=== PATIENT | female | born 1995 | race Two or more races ===

== ENCOUNTER 2022-02-07 10:58 | Outpatient (CLI) | payer MEDICAID, SELFPAY ==
--- NOTE | 2022-02-07 14:29 | P.LACF_ITS ---
Follow-Up Note: Mom Date of visit Date of visit: 02/12/22 child development consultant: Antonia Rico Delivery Information Delivery type: Primary C/S; Labored Gestational Age: AGA Weight: 3.232 kg Assessments/Interventions Assessments/Interventions: Met with mom and this now 2 month old ex- term AGA baby for consult.? Mom reports baby wouldn't latch initially so she began pumping and offering EBM with every feeding; she had to add in formula a few weeks after delivery d/t her supply.? She called in early January to discuss her supply, declining a appointment.? During that phone call we talked about continuing with her regular pumping schedule, starting Fenugreek with Blessed Thistle, and that her mom's harper ggestion of a beer once/day was also ok.? She reports she has been pumping with every feeding, didn't purchase the herbs, didn't see an increase with the beer.? She's getting 1 - 2 oz total every time she pumps.? In the last month she's developed recurring plugged ducts and states out of desperation to remove them she put baby to breast; he will often latch and nurse and can pull them out. Mom is tired of pumping and really tired of the plugged ducts.? She's considering weaning from the pump if they don't resolve. Breasts are symmetrical with rounded lower quadrants and the intramammary dista nce is < 1.5 inches.? Areas of firmness are felt on both breasts but no s/s of mastitis and mom denies ever having those symptoms.? She also denies doing things that might cause a plugged duct- wearing a tight fitting bra, skipping pumping sessions, carrying heavy bags/baby on one side, or sleeping on her stomach.? Nipples are everted and don't flatten or retract with compression; no damage noted. ? Baby has gained almost 2 oz/day since his last visit on 12/23/21 and he's around the 75th percentile on the growth chart.? Per mom he has equal ROM when turning his head and moving his extremities.? His palate may be a little high, he has a strong suck on a finger, and no obvious signs of a tongue tie. Mom latched baby to both sides and he had a wide latch, mom was comfortable.? He nursed 10 - 15 minutes on the left (her better furniture decals inspector) and about 5 minute on the right transferring 42 ml.? Mom then gave him a 4 oz bottle of formula.? We reviewed her flange sizes- she has a Spectra and an Flaca, but only brought the Flaca so a pumping session couldn't be observed.? She is using a 24 mm with the Spectra but after measuring her nipples it was suggested she try a 20 mm to see if that's more comfortable or she gets more milk.? Plan: 1. Encouraged her to put baby to breast frequently, he's a better pump and increasing how often he nurses may help increase her supply. 2. Continue pumping with every feeding where she doesn't nurse.? Suggested the smaller flange sizes and also to try the Spectra more often as it's probably a stronger pump. 3. Continue supplementing baby with EBM/formula as needed. 4. Consider giving the Fenugreek/Blessed Thistle combination a try. 5. Suggested she start Lecithin 1200 mg BID.? If this doesn't resolve the plugged ducts to try 1200 mg QID, weaning down every two weeks (a handout was given). 6. Reviewed s/s of mastitis. 7. Will f/u by phone on 02/21/22.
--- NOTE | 2022-02-12 14:17 | P.LACCB_ITS ---
Consult Note - Mom Date of Visit Date of visit: 02/07/22 residential property consultant: Antonia Rico Patient's Information Phone number: [phone] : 1 Para: 1 Mother's Medical History: severe pre-eclampsia after delivery Type of Contraception: nexplanon Work Plans: returns to work in 3 months Delivery Information Delivery type: Primary C/S; Labored Weeks Gestation: 39.2 Gestational Age: AGA Weight: 3.232 kg Discharge Weight: 5.828 kg Baby's Information Baby's Age at Visit: 2 months Baby's Provider or Clinic: Dr. Coy Reason for Consult Reason for Consult: low supply, recurring plugged ducts Past Experience Past Experience: No Current Frequency of Day Feedings: occasionally puts him to breast, normally bottle feeds abotu every 3 hours Frequency of Night Feedings: bottle feeds 1 - 2 times/night Pumping Pumping: Yes (mom tries to pump with every feeding) Quantity Pumped: 1 - 2 oz total Supplementing EMB Supplement: Yes (baby takes 4 oz EBM or formula every 3 - 4 hours) Formula Supplement: No Baby Elimination Number of Wet Diapers a Day: at least every other feeding Number of BM a Day: once usually every afternoon Breast/Nipple Condition Breast Information: WNL Maternal Nipple Condition - Left: Common Nipple Maternal Nipple Condition - Right: Common Nipple Onsite Pre-Feed weight: 5.786 kg Post-Feed weight: 5.828 kg Milk Transferred (mL): 42 Pre-Nursing Left Nipple: Within Normal Limits Pre-Nursing Right Nipple: Within Normal Limits Post-Nursing Left Nipple: Within Normal Limits Post-Nursing Right Nipple: Within Normal Limits
== END 2022-02-07 10:59 | disposition home or self-care (01) ==
PROVIDERS: Visit Provider Registered Nurse
DX: Z39.1 Encounter for care and examination of lactating mother (principal)
CPT/HCPCS: 99211

== ENCOUNTER 2022-04-29 16:37 | Emergency (ER) | payer MEDICAID, SELFPAY ==
[2022-04-29 16:43] VITALS: BP 126/87; PULSE 102; RESP 20; TEMP 38.1; O2SAT 99; BMI 32.3
[2022-04-29 17:40] LABS: PCR FLU A Negative PCR FLU A (Negative); PCR FLU B Negative PCR FLU B (Negative)
[2022-04-29 17:48] LABS: SARS PCR* POSITIVE SARS-CoV-2 (Negative)
[2022-04-29] MEDS: 0.9 % SODIUM CHLORIDE 1000 ml 1,000 ML IV (17:57)
[2022-04-29] MEDS: KETOROLAC 30 MG/ML inj IVP (17:57)
--- NOTE | 2022-04-29 18:00 | ED.HA ---
HPI - Headache General Chief Complaint: Headache/Migraine Stated Complaint: DIZZINESS,MIGRAINE Time Seen by Provider: 04/29/22 16:48 History of Present Illness HPI Narrative: 26-year-old young woman presenting to the emergency department with concern of ?migraine?. She describes a pain behind her head/neck. Does get headaches sometimes. Has not been formally diagnosed with migraine. She tried Tylenol at onset around 4:00 a.m. did not seem to make a difference but she was able to fall back asleep until 7 and headache persisted. Has not been vomiting. No visual disturbance. Was associated a little bit with some lightheadedness and little dizziness. 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 No palpitations or tachycardia was described. She is not short of breath. Was having some tingling S in her feet at 1 point. Was maybe a little congested but she blamed it on her mask. She is anticipating being seen in clinic for potential clean out of her ears as they have been feeling full. No facial pain. No cough. Is noted to be febrile and slightly tachycardic on arrival. She is breast-feeding a an approximately 7-month-old. She has some fullness in her and discomfort in her breasts but no inflammatory changes. She would like treatment for the headache. Related Data Home Medications Medication Instructions Recorded Confirmed etonogestrel 68 mg subdermal 1 implant subdermal 04/29/22 implant (Nexplanon) Allergies Allergy/AdvReac Type Severity Reaction Status Date / Time No Known Drug Allergies Allergy Verified 03/14/22 17:43 Review of Systems Status of ROS: Reports: 10 or more systems reviewed and unremarkable except as noted in History and below [facility] Social History Smoking Status: Former smoker Do you use any of these nicotine containing products: None How often do you have a drink containing alcohol: 4 or more times a week How many standard drinks containing alcohol do you have on a typical day: 1 or 2 How often do you have six or more drinks on one occasion: Never AUDIT-C Alcohol total score: 4 Non-prescribed substance use: denies use Exam Narrative: Exam Narrative: Is pleasant. NAD. Seems of good energy. Cranial nerves 2-12 intact. Breathing easily. Sounds maybe slightly congested in her nasopharynx. Neck is supple. Oropharynx is moist, unremarkable. Dentition in good repair. No facial swelling erythema or tenderness. TMs bilaterally are clear and ear canals with only trace amount of cerumen. Cardiovascular with elevated rate and regular rhythm. Did not do breast exam given HPI report. Moving all extremities without difficulty/with good strength. Const: Vital Signs, click to edit/add: Vital Signs - 24 hr 04/29/22 16:43 Temperature 100.5 F H Pulse Rate [Right Pulse Oximeter] 102 H Respiratory Rate 20 Blood Pressure [Ri ght Upper Arm] 126/87 Pulse Oximetry 99 Oxygen Delivery Me thod Room Air Documenting provider has reviewed patient's vital signs: yes Course Course Hospital Course: Initiated on treatment for headache with IV fluids and ketorolac. Reevaluation(s) Reevaluation #1: Markedly improved with regards to her headache. COVID was positive Consultations Consultation #1: I did discuss care of baby in breast-feeding with regard to COVID with OBGYN on-call. Vital Signs Vital signs: Initial Vital Signs Temperature 100.5 F H 04/29/22 16:43 Temperature Source Temporal Artery Scan 04/29/22 16:43 Pulse Rate 102 H 04/29/22 16:43 Respiratory Rate 20 04/29/22 16:43 Blood Pressure 126/87 04/29/22 16:43 Blood Pressure Mean 100 04/29/22 16:43 Blood Pressure Position Sitting 04/29/22 16:43 Pulse Oximetry 99 04/29/22 16:43 Oxygen Delivery Method 04/29/22 16:43 Vital Signs Temperature 100.5 F H 04/29/22 16:43 Pulse Rate 102 H 04/29/22 16:43 Respiratory Rate 20 04/29/22 16:43 Blood Pressure 126/87 04/29/22 16:43 Pulse Oximetry 99 04/29/22 16:43 Oxygen Delivery Method 04/29/22 16:43 Temperature 100.5 F H 04/29/22 16:43 Pulse Rate 102 H 04/29/22 16:43 Respiratory Rate 20 04/29/22 16:43 Blood Pressure 126/87 04/29/22 16:43 Pulse Oximetry 99 04/29/22 16:43 Oxygen Delivery Method 04/29/22 16:43 MDM - Headache MDM Narrative Medical decision making narrative: She would like treatment for her headache. Given elevated temperature and her pulse would suggest brewing infectious etiology may be triggering this. COVID testing is pending. It looks like ritonavir at least would not be transmitted breast milk. COVID also not transmitted in breast milk. Recommendations are to continue , masking and and washing. Do not feel that degree of illness is significant enough to warrant Paxlovid at this time. Would need to check creatinine yet before prescribing. Medical Records Attestation: I reviewed the patient's medical records. Lab Data Attestation: I reviewed the patient's lab results. Labs: Lab Results 04/29/22 Range/Units 16:55 SARS-CoV-2 (PCR) POSITIVE SARS-CoV-2 A (Negative) Influenza Type A (PCR) Negative PCR FLU A (Negative) Influenza Type B (PCR) Negative PCR FLU B (Negative) Discharge Plan Discharge Clinical Impression: COVID-19, Headache Patient Disposition: Home w/ Parent or Adult Condition: Improved Additional Instructions: Focus on hydration. You may continue to breast feed but recommendations would be to wear a mask as provided with any prolonged close contact and be sure to practice careful handwashing. If you seem to be experiencing more severe symptoms, you might want to consider Paxlovid. This decision ideally though would happen within the 1st 48 hours of illness. If getting much worse, would need to follow-up to check renal function and then could potentially begin Paxlovid. Otherwise I would recommend 10 days of quarantine from initial onset of symptoms. He mentioned that your work is recommending 5 days, I would definitely then be sure you have a negative antigen test at that point. Can take ibuprofen, acetaminophen. Prescriptions: No Action Nexplanon 68 mg implant 1 implant subdermal Follow Up/Referrals: Provider,Not a Local [Primary Care Provider] - Stand Alone Forms: [employer] Info Instructions
== END 2022-04-29 19:29 | disposition home or self-care (01) ==
PROVIDERS: Emergency Provider Family Medicine
DX: R51.9 Headache, unspecified (principal); U07.1 COVID-19
CPT/HCPCS: 87631; 96374; 99283; 99284; J1885; J7030

== ENCOUNTER 2024-08-11 11:38 | Outpatient (CLI) | payer SELFPAY ==
--- NOTE | 2024-08-11 12:15 | CRLHL7_ITS ---
For Patients: As a result of the Century Cures Act, medical imaging exams and procedure reports are released immediately into your electronic medical record. You may view this report before your referring provider. If you have questions, please contact your health care provider. INDICATION: Dating and viability TECHNIQUE: Conventional transabdominal two-dimensional grayscale ultrasound examination COMPARISON: None FINDINGS: There is a living fetus with gestational age of 13 weeks 6 days by LMP at 14 weeks 2 days by today`s measurements. EDC based on LMP is 02/10/2025. BPD: 2.5 cm, 14 weeks 2 days Head circumference: 9.8 cm, 14 weeks 4 days Abdominal circumference: 7.8 cm, 14 weeks 2 days Femur length: 1.3 cm, 14 weeks HC/AC: 1.25 The weight is estimated at 91 grams, the 53rd percentile. The heart rate is measured at 152 beats per minute and the rhythm appears regular. The amniotic fluid volume is within normal limits. The placenta is posterior. IMPRESSION: 1. Living fetus with gestational age of 13 weeks 6 days by LMP at 14 weeks 2 days by today`s measurements. EDC based on LMP is 02/10/2025. 2. No complication evident. Dictated by Shahid Soria MD @ 08/12/2024 1:46:48 PM (Electronically Signed)
== END 2024-08-11 11:39 | disposition home or self-care (01) ==
LOC: US 11:41
PROVIDERS: Visit Provider Physician Assistant
DX: Z34.92 Encounter for supervision of normal pregnancy, unspecified, second trimester (principal); Z3A.14 14 weeks gestation of pregnancy
CPT/HCPCS: 76801

== ENCOUNTER 2024-08-11 13:45 | Outpatient (CLI) | payer SELFPAY ==
[2024-08-11 19:09] LABS: Chlamydia DNA Amplified* NOT DETECTED (No Detected); GC DNA Amplified* NOT DETECTED (No Detected)
[2024-08-16 14:58] LABS: HPV Source Cervix; HPV, High Risk by TMA Not Detected
== END 2024-08-11 13:46 | disposition home or self-care (01) ==
PROVIDERS: Visit Provider Physician Assistant
DX: Z34.91 Encounter for supervision of normal pregnancy, unspecified, first trimester (principal); Z12.4 Encounter for screening for malignant neoplasm of cervix; Z3A.13 13 weeks gestation of pregnancy
CPT/HCPCS: 82565; 82570; 83020; 83021; 84156; 84450; 84460; 84520; 85660; 86592; 86703; 86704; 86706; 86762; 86787; 86803; 86850; 86900; 86901; 87086; 87340; 87491; 87591; 87624; 87625; 88141; 88142

== ENCOUNTER 2024-09-09 07:45 | Outpatient (CLI) | payer BC, SELFPAY | END 2024-09-09 07:46 | disposition home or self-care (01) | PROVIDERS: Visit Provider Physician Assistant | DX: Z34.92 Encounter for supervision of normal pregnancy, unspecified, second trimester (principal); Z3A.18 18 weeks gestation of pregnancy | CPT/HCPCS: 82570; 84156 ==

== ENCOUNTER 2024-09-27 07:08 | Outpatient (CLI) | payer BC, SELFPAY | END 2024-09-27 07:09 | disposition home or self-care (01) | PROVIDERS: Visit Provider Registered Nurse | DX: Z34.92 Encounter for supervision of normal pregnancy, unspecified, second trimester (principal); Z3A.20 20 weeks gestation of pregnancy | CPT/HCPCS: 76805 ==

== ENCOUNTER 2024-10-28 12:54 | Outpatient (CLI) | payer BC, SELFPAY ==
--- NOTE | 2024-10-28 13:00 | CRLHL7_ITS ---
For Patients: As a result of the Century Cures Act, medical imaging exams and procedure reports are released immediately into your electronic medical record. You may view this report before your referring provider. If you have questions, please contact your health care provider. OB ULTRASOUND, 10/28/2024 CLINICAL HISTORY: Follow-up anatomy; heart rate, diaphragm. COMPARISON: 09/27/2024. TECHNIQUE: Real time alston scale imaging of the fetus was performed transabdominal. FINDINGS: FILEMON by LMP: 02/10/2025. GA: 25 weeks 0 days. GESTATION: Single. SURGERY: None. LMP: 05/06/2024. CERVIX: Not visualized. POSITIONING: Multiple. AMNIOTIC FLUID: 5.7 cm SDP. PLACENTA: Technique: TA. Placenta Position: Posterior. DOPPLERS: Heart Rate: 154 bpm. IMPRESSION: 1. RVOT and 3 vessel trachea view still not well visualized due to active fetus in variable position. 2. Nose, lips, face, profile, diaphragm, 3 vessel view, LVOT and 4 chamber heart all visualized and appear normal. Armando Landa M.D. Diagnostic Radiologist [email or web address] Transcribed: 11:51 am DW/Dictated by: Armando Landa MD @ 10/30/2024 8:54:00 PM (Electronically Signed)
== END 2024-10-28 12:55 | disposition home or self-care (01) ==
LOC: US 12:54
PROVIDERS: Visit Provider Obstetrics & Gynecology
DX: O35.BXX0 Maternal care for other (suspected) fetal abnormality and damage, fetal cardiac anomalies, not applicable or unspecified (principal)
CPT/HCPCS: 76816

== ENCOUNTER 2024-11-18 09:06 | Outpatient (CLI) | payer BC, SELFPAY ==
--- NOTE | 2024-11-18 09:15 | CRLHL7_ITS ---
For Patients: As a result of the Century Cures Act, medical imaging exams and procedure reports are released immediately into your electronic medical record. You may view this report before your referring provider. If you have questions, please contact your health care provider. OB ULTRASOUND FILEMON by LMP or US: 02/10/2025. GA: 28 w, 0 d. Single. Comparison: Ultrasound 10/28/2024, 09/27/2024. INDICATION: Follow-up RVOT and 3VT. TECHNIQUE: Real time grayscale imaging of the fetus was performed. Transabdominal. CERVIX: Not visualized. POSITIONING: Breech. AMNIOTIC FLUID: 5.3 cm. SDP (N: greater than 2 x 1 cm) PLACENTA: Technique: Transabdominal. PLACENTA POSITION: Posterior. DOPPLER: heart rate: 147 bpm. IMPRESSION: Normal RVOT, three-vessel view and three-vessel trachea view. Armando Landa M.D. Diagnostic Radiologist [email or web address] PRAMOD/anyi de santiago/Dictated by: Armando Landa MD @ 11/18/2024 10:17:00 AM (Electronically Signed)
== END 2024-11-18 09:07 | disposition home or self-care (01) ==
LOC: US 09:06
PROVIDERS: Visit Provider Obstetrics & Gynecology
DX: Z34.93 Encounter for supervision of normal pregnancy, unspecified, third trimester (principal); Z3A.28 28 weeks gestation of pregnancy
CPT/HCPCS: 76816; 86592

== ENCOUNTER 2025-01-17 17:24 | Outpatient (CLI) | payer BC, SELFPAY ==
[2025-01-18 15:16] LABS: Strep B DNA Probe Negative (Negative)
[2025-01-18 21:18] LABS: Strep B Susceptibility Needed? No
== END 2025-01-17 17:25 | disposition home or self-care (01) ==
LOC: NFLDREF 17:24
PROVIDERS: Visit Provider Obstetrics & Gynecology
DX: Z34.93 Encounter for supervision of normal pregnancy, unspecified, third trimester (principal); Z3A.36 36 weeks gestation of pregnancy
CPT/HCPCS: 87081; 87653

== ENCOUNTER 2025-01-30 04:55 | Inpatient (IN) | payer BC, SELFPAY ==
[2025-01-30] VITALS (22 sets, daily range): BP systolic 107–138; BP diastolic 70–90; PULSE 66–97; RESP 16–18; TEMP 36.6–37.3; O2SAT 96–100; BMI 39.9
--- OUTSIDE RECORDS SUMMARY | 2025-01-30 04:03 | XMS_ITS | Clinical Summary ---
Author Organization [facility] Address [address] [place] [id number] Care Team Providers Care Machine Presser Name Role Phone April Barragan MD Primary Care Provider Allergies No known active allergies Medications fluocinonide 0.05 TOPICAL (LIDEX) 0.05 % external solutionIndicat ions:Psoriasis Apply topically to affected area(s) two times daily. Use for up to 2 weeks. 60 mL 1 3 Active ketoconazole 2% shampoo (NIZORAL) 2 % shampooIndicati ons:Psoriasis Shampoo the hair thoroughly each day for 3 days. 120 mL 3 Active Active Problems Problem Noted Date Diagnosed Date Acne 07/12/2011 Resolved Problems Problem Noted Date Diagnosed Date Resolved Date IUD (intrauterine device) in place 11/22/2014 09/17/2017 Overview (11/22/2014): Yuridia 11/22/2014 Immunizations Immunization Administration Dates Next Due AMB INFLUENZA, IIV4 (AGE=>6M OS) MDV (Flu Clinic Only) 08/08/2019 AMB Influenza, IIV3 (Age >=3 years) Preserve Free (Flu Clinic Only) 05/18/2012 AMB Influenza, IIV3 (Age >=3 years)(Flu Clinic Only) 05/11/2013,05/16/2009 AMB Influenza, IIV4 PF (=>6 mos Flulaval,Fluzone Fluarix)(Flu Clinic Only) 05/18/2020 COVID-19 vaccine (Tilera NTech 30mcg/0.3mL) PF, MDV 01/16/2021,12/26/2020 DTP 10/05/1998, 8,1997,09/07 DTaP 03/30/2003 HIB PRP-OMP (PedvaxHIB) 10/05/1998,1997, Hepatitis A (Peds) 01/13/2014 Hepatitis B (Peds) 10/05/1998,1997, 998 Human Papilloma Virus Vaccine 06/18/2009, 009,12/06/2008 Inactivated Polio Vaccine 03/30/2003,,10/05/1998,10/25,1997 Influenza A (H1N1), Inactivated 06/22/2009 Influenza A (H1N1), Inactiva nehal (Age >=3 Years) 06/22/2009 Influenza, IIV3 (Age 6-35 mos) 07/11/2011 Influenza, IIV3 (Age >=3 years) 07/11/2011 Influenza, IIV4 06/26/2023, 1,08/08/2019,06/11,09/15/2017,04/17/2015,04/17/2014 ,06/22/2009 Influenza,CCIIV4 PRESERV FREE 08/08/2019 MENINGOCOCCAL VACCINE 2 VIAL 2MO-55YO (MENVEO) 01/13/2014,04/03/2010 MMR 03/30/2003,10/05/1998 Meningococcal Vaccine (Menactra) 04/03/2010 Td, Preservative Free (age >= 7 Years) 0 Tdap 10/11/2021,03/29/2009 Tuberculin (PPD) 01/13/2007,01/08/2007 Typhoid (injectable) 01/13/2014 Varicella Vaccine 03/29/2009,10/05/1998 Yellow Fever 01/13/2014 Family History Medical History Relation Name Comments Good Health Father Diabetes Maternal Grandfather Diabetes Maternal Grandmother Heart attack Maternal Grandmother Hypertension Maternal Grandmother Stroke Maternal Grandmother Good Health Mother Asthma No Family History Cancer-breast No Family History Cancer-colon No Family History Hyperlipidemia No Family History Relation Name Status Comments Father Alive Half-Brother Alive Maternal Grandfather Alive Maternal Grandmother Mother Alive Paternal Grandfather Paternal Grandmother Alive Sister Alive Social History Tobacco Use Types Packs/Day Years Used Date Smoking Tobacco: Former Smokeless Tobacco: Never Tobacco Cessation:Counseling Given: Yes Comments:2 cigarettes per month Alcohol Use Standard Drinks/Week Comments Yes 0 (1 standard drink = 0.6 oz pur e alcohol) 2 drinks per month PHQ-2 Answer Date Recorded PHQ-2 TOTAL SCORE 0 10/10/2022 Financial Resource Strain Answer Date R ecorded Difficulty of Paying Living Expenses Not on file 08/03/2021 Difficulty of Paying Living Expenses Not on file 08/03/2021 Comments No Sex and Gender Information Value Date Recorded Sex Assigned at Not on file Legal Sex Female 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 Gender Identity Not on file Sexual Orientation Not on file Obstetrics History Para Term AB IAB SAB Ectopic Multiple Livin g Live Births 1 1 1 0 0 0 0 0 0 1 1 Date Outcome GA Total Labor Labor/2nd/3rd Weight Sex Type Anes PTL Hetal A1 A5 Name Clin 022 Term M C-Sec tion N [facility] Delivery Location:Hospital Comments:Pre-Eclampsia Last Filed Vital Signs Vital Sign Reading Time Taken Comments Blood Pressure 108/68 06/26/2023 8:35 AM SCENIC ARTS SUPERVISOR Pulse 60 06/26/2023 8:35 AM SCENIC ARTS SUPERVISOR Temperature 37.3 C (99.2 F) 03/01/2020 11:48 AM CDT Respiratory Rate 15 05/08/2022 2:13 PM CDT Oxygen Saturation 100% 03/30/2023 8:32 AM CDT Inhaled Oxygen Concentration - - Weight 88 kg (194 lb) 06/26/2023 8:35 AM SCENIC ARTS SUPERVISOR Height 151.7 cm (4' 11.74) 10/10/2022 1:[address] Body Mass Index 38.21 10/10/2022 1:25 PM SCENIC ARTS SUPERVISOR Plan of Treatment Health Maintenance Due Date Last Done Comments HIV for age 15-65 2012 Hepatitis C screening for age 18-79 2015 BMI (ht and wt on same day) for age 18+ 10/11/2023 10/10/2022, 05/08/2022, 01/25/2021, Additional history exists Depression screening for age 12+ 10/11/2023 10/10/2022, 01/25/2021, 05/18/2020, Additional history exists Pap test for age 21-65 01/26/2024 01/25/2021 COVID-19 vaccine series ( season) 2024 01/16/2021, 12/26/2020 Influenza Vaccine (Season Ended) 2025 06/26/2023, 05/21/2021, 05/18/2020, Additional history exists Tetanus booster 10/12/2031 10/11/2021, 09/04, 03/29/2009 Hepatitis B series for 19+ Completed 10/05, 1997, 1997 Tdap Completed 10/11/2021, 03/29/2009 Pneumococcal series for age 6-49 Aged Out No longer eligible based on patient's age to complete this topic Procedures Procedure Name Priority Date/Time Associated Diagnosis Comments RESIDENCE DIRECTOR THIN PREP PAP SCREEN IMAGED Routine 01/25/2021 1:50 PM CDT Pap smear for cervical cancer screening from Last 3 Months or Most Recently Relevant to Health Maintenance Results * RESIDENCE DIRECTOR THIN PREP PAP SCREEN IMAGED (01/25/2021 1:50 PM CDT) Case Report Gynecologic Cytology Report Case: [id number] Authorizing Provider: April Barragan MD Collected: 01/25/2021 1350 Ordering Location: [facility] Received: 01/25/2021 1405 Clinic First Screen: Shannan Reich Specimen: RESIDENCE DIRECTOR ThinPrep Vial Screening, Cervical 02/06/2021 10:19 AM CDT [facility] ENTRAL LABORATORY INTERPRETATION/ RESULT NEGATIVE FOR INTRAEPITHELIAL LESION OR MALIGNANCY (NIL) (none) 02/06/2021 10:19 AM CDT [facility] ENTRAL LABORATORY at 1019 CDT SPECIMEN ADEQUACY Satisfactory for evaluation Endocervical component present 02/06/2021 10:19 AM CDT [facility] HPV REQUEST HPV if ASCUS 02/06/2021 10:19 AM CDT [facility] Date of LMP 01/04/2021 02/06/2021 10:19 AM CDT [facility] Last Pap Date never 02/06/2021 10:19 AM CDT [facility] Last Pap Result First Pap/Unknown 10:19 AM CDT [facility] Abnormal Pap or Elmer Bx in last 5 years No 02/06/2021 10:[address] [facility] Menstrual Status Regular Periods 02/06/2021 10:19 AM CDT [facility] Elmer Bx Done Today No 02/06/2021 10:19 AM CDT [facility] Additional Information None given 02/06/2021 10:19 AM CDT [facility] Comment: Cytology is screened at [facility] - [address], [place] [address] and [facility] - [address] [place] [address] and [facility] - [address] [place] [address] Interpreted at [facility] - [address], [place] [address] Automated Review Successful 02/06/2021 10:19 AM T [facility] Comment:Specimen processed s uccessfully by automated home care aide device, ThinPrep Imaging System, [employer] Note The pap test is a screening technique, not a diagnostic procedure. It is used primarily to screen for squamous cancers and precursor lesions. Published studies have shown that it is subject to both false negative and false positive results. The pap test should not be used as the sole means to diagnose or exclude pre-malignant and malignant lesions. 02/06/2021 10:19 AM CDT [facility] Other (Cervical) Non-Blood / Unknown 01/25/2021 1:50 PM CDT 01/25/2021 2:05 PM CDT April Barragan MD PATHOLOGY/CYTOLOGY Charlene staton Result [facility] LAB[facility]ORY [address] [place] [address], [place] from Last 3 Months or Most Recently Relevant to Health Maintenance Insurance [facility] * Guarantor: [employer] Account Type Relation to Patient Date of Phone Billing Address Confidential Care Teams Machine Presser Relationship Specialty Start Date End Date April Barragan MD [address] [place] [id number] PCP - General Family Practice 01/25/21
--- OUTSIDE RECORDS SUMMARY | 2025-01-30 04:03 | XMS_ITS | Data Portability ---
Author Organization [facility] [employer]erk[employer] jaquiDIMPLE mejiaABRAZO [facility] Address [address] [place], [place] [address], [place] [address] Assessment No assessment recorded. Plan of Treatment Reminders Order Date Submit Date Provider Last Modified By Organization Details Last Modified Time Details Appointments None record ed. Lab None record ed. Referral None record ed. Procedures None record ed. Surgeries None record ed. Imaging None record ed. Medication Orders None record ed. Patient TargetsNo targets recorded. Patient InstructionsNo instructions recorded. Reason for Referral None Reported. Medical Equipment None Reported. Medications Name Sig Start Date Stop Date Status Note LastModified by Organization Details LastModified Time amoxicillin 875 mg-potassium clavulanate 125 mg tablet TAKE 1 TABLET BY MOUTH TWICE DAILY FOR 5 DAYS active Not Available Not Available No t Available Vitals Date Recorded Oxygen saturation Oxygen saturation in Arterial blood by Pulse oximetry Heart rate Body weight Body mass index (BMI) Body height Body temperature Systolic blood pressure Diastolic blood pressure Provider Name and Address Organization Details Last Updated DateTime 5 99 % 99 % 110 /min 10032.1 2 g 34.7 kg/m2 150.37 cm 101.2 [degF] 139 mm[Hg] 80 mm[Hg] DAKOTA Luu [address] [place] [address], [id number], [facility] [employer] [facility] 5 12:22:37 Social History None recorded. Functional Status None recorded. Mental Status None recorded. Family History Nothing Reported. Medical History No medical history recorded. Gynecological HistoryNo gynecological history recorded. Obstetrics History GPAL:G 2 P 0 0 0 0 Past Encounters Encounter ID Performer Location Encounter Start Date Encounter Closed Date Diagnosis/Indication Diagnosis SNOMED-CT Code Diagnosis ICD10 Code Diagnosis Note [id number] DAKOTA Luu [facility] [place] [facility] [address] [facility] AN[place]AR[place] Monique [id number] 08/08/2024 12:18:22 08/08/2024 12:47:17 Influenza 2919765 J11.1 Suspect influenza based on clinical presentati on; I do recommend repeating COVID test tomorrow for clarificat ionNo flu testing recommende d as it will not change recommenda tionsDiscu ssed use of Tamiflu but given limited research in I'm reluctant to prescribeS ymptomatic treatment measures reviewed; discussed what is safe to use in . F/U prnLetter for work provided Health Concerns Section Related Observation LastModified by Organization Detai ls LastModified Time None Recorded Concern Status LastModified by Organization Details LastModified Time None Recorded Advance Directives Directive None Recorded Payers Insurance Date Sequence Insurance Name Policy Number Policy Harris Covered Member ID Harris Member ID Guarantor Name 08/08/2024 SLIDING FEE SCHEDULE - DISCOUNT Dana Joey Notes Date Note Type Note Provider Name and Address Organization Details Recorded Time 08/08/2024 text/html Pt comes in toda y with sickness sxs x 2 daysSTarted on Thursday with Body aches, fever, ABREU, sHas since developed rhinorrhea, sinus pain & pressure, cough and occasional dizziness. Also complaining of right ear painNegative COVID test yesterdayIs able to drink fluidsIs 3 months ; has not yet had a visitLMP: May 2024Hx of preeclampsia with last (delivered December 2021) Debbie Griffiths, [facility] [address] [place], [address], [facility] - [facility] 08/08/2024 12:56:54 OBGyn Episode No OBEpisode recorded.
[2025-01-30 04:33] LABS: Amnisure Rom* POSITIVE
[2025-01-30 04:35] LABS: Hematocrit 39.2 % (33.0-51.0); Hemoglobin* 13.2 gm/dL (12.0-16.0); Immature Granulocytes Abs Auto 0.03 K/uL (0.00-0.30); Immature Granulocytes Pct Auto 0.3 %; Lymphocytes Absolute Auto 2.59 K/uL (0.90-2.90); Mean Corpuscular HGB Conc 34 gm/dL (32-36); Mean Corpuscular Hemoglobin 28 pg (26-34); Mean Corpuscular Volume 83 fL (80-100); RDW Coefficient of Variation % 14.3 % (11.5-15.5); Red Blood Count 4.74 m/uL (4.00-5.20); White Blood Count* 9.04 K/uL (4.50-11.00)
[2025-01-30 04:37] LABS: Slide Review Reflex No
[2025-01-30] MEDS: AZITHROMYCIN 500 MG in 0.9 % SODIUM CHLORIDE 250 ml 250 ML 255 MG IVPB (05:42)
[2025-01-30] MEDS: LACTATED RINGERS 1000 ML 1,000 ML IV (05:42)
[2025-01-30] MEDS: ACETAMINOPHEN 500 MG TABLET 1000 MG PO ×2 (05:50→18:18)
[2025-01-30] MEDS: LACTATED RINGERS 1000 ML 1,000 ML 500 ML IV ×2 (07:03→10:12)
--- NOTE | 2025-01-30 07:09 | P.LDBA_ITS ---
Subjective History of Present Illness Date Seen: 01/30/25 Narrative: Patient is being admitted to Labor and Delivery for repeat in the setting of labor. She is a 29 year old at 38 3/7 weeks gestation. Her full history and physical was dictated by Dr. Martinez on 01/27/25. Please see this for details. [] Specific Issues/Plans Partner: Jayson Son: Trenton Hurtado Baby: Boy! H&P: NDP on 01/27/25 and signed consent # history of severe preeclampsia by blood pressure criteria * 81 mg of aspirin * Baseline pre E labs: normal, pr/cr ratio:0.02 * 24 urine for protein: 41mg # history of , arrest of descent and chorioamnionitis * Patient leaning towards repeat , but might consider TOLAC. Predicted chance of success: 37%. * Repeat C/S on 02/07 with NDP # obesity, BMI 35.6 Hemoglobin A1c: 5.5% Imagin09/27/2024 FAS No anomaly evident. Posterior placenta without previa. face, heart, ventricular outflow tracts and diaphragm suboptimally visualized due to lie. Limited follow up recommended. 10/28/2024: 1. RVOT and 3 vessel trachea view still not well visualized due to active fetus in variable position. 2. Nose, lips, face, profile, diaphragm, 3 vessel view, LVOT and 4 chamber heart all visualized and appear normal. 11/18/2024: Normal RVOT, three-vessel view and three-vessel trachea view. Vaccinations: COVID: Declined Flu: 08/11/24 Tdap: 12/02/2024 RSV: N/A 32 week mental health: 12/16/24 Hgb: 01/03/25 12.7 Last pap: 08/11/24 OB - Problem Based A/P Additional Plan (1) History of section complicating : Status: Acute Plan: Currently in early labor Delivery/Labor/Induction Plan Plan: Section OB Exam Physical Exam Vital signs: Temp Pulse Resp BP 98.4 F 80 18 124/87 01/30/25 06:49 01/30/25 03:58 01/30/25 06:49 01/30/25 03:58 Narrative: Physical exam: General: No acute distress Psych: Alert and oriented x3, full affect HEENT: Normocephalic, atraumatic Heart: Regular rate and rhythm, no murmur rub or gallop Lungs: Clear to auscultation bilaterally Abdomen: Gravid Cervical exam at admit: 2 cm, 50%, -3 tracing: Baseline 120, accelerations present abdomen no decelerations, moderate variability. Contractions occurring every 3-5 minutes
[2025-01-30] MEDS: CEFAZOLIN 2 GM INJ IVP (07:38)
--- NOTE | 2025-01-30 08:37 | P.ANES_ITS ---
Anesthesia Charges Start Date/Time Anesthesia Start Date: 01/30/25 Anesthesia Start Time: 07:18 Stop Date/Time Anesthesia Stop Date: 01/30/25 Anesthesia Stop Time: 08:56 Coding CPT Codes CPT Codes: ANESTH CS DELIVERY - 03079 ([id number]) P3 - PATIENT W/SEVERE SYS DISEASE, QK - ACCOUNTS PAYABLE ASSISTANT 2-4 CNCRNT ANES PROC, QX - DETECTIVE PRIVATE EYE SVC W/ MD MED DIRECTION
--- NOTE | 2025-01-30 08:37 | W.ANESCHARGE ---
Anesthesia Charges Start Date/Time Anesthesia Start Date: 01/30/25 Anesthesia Start Time: 07:18 Stop Date/Time Anesthesia Stop Date: 01/30/25 Anesthesia Stop Time: 08:56 Coding CPT Codes CPT Codes: ANESTH CS DELIVERY - 16513 ([id number]) P3 - PATIENT W/SEVERE SYS DISEASE, QK - MARKETING DEVELOPER 2-4 CNCRNT ANES PROC, QX - UPS DRIVER SVC W/ MD MED DIRECTION
--- NOTE | 2025-01-30 08:50 | PM.OBPRCCS ---
Procedure Date of procedure: 01/30/25 Pre-op diagnosis: Labor at 38 3/7 weeks Previous , desires repeat Post-op diagnosis: same Procedure Done: Global Will [facility] bill your pro fee for this procedure?: Yes Blood Loss Measurement Type: QBL (811) Bakri Used: No IV fluids (mL): 800 Urine Output (mL): 200 Surgeon: Sherry Mondragon MD Findings: 1. Male infant, cephalic presentation, Apgars of 8 and 9, weight 3450 g 2. Normal appearance of uterus, bilateral tubes and ovaries Procedure Name: Repeat delivery Procedure Description: Patient was taken to the operating room with IV running. She received cefazolin and azithromycin in preoperative prophylaxis. Spinal anesthesia was administered. Donald catheter was inserted. She was prepped and draped in the usual sterile fashion. Anesthesia was tested and found to be adequate. A low-transverse skin incision was made with a scalpel and carried through to the underlying layer of fascia with the scalpel. The subcutaneous fat was dissected off the underlying fascia with Bovie. The fascia was nicked in the midline with a scalpel, and this incision was extended laterally with scissors. The rectus muscles were in the midline. Peritoneum was identified and entered sharply. Bovie was used to widen this opening. Marito O retractor was inserted and tightened down, providing excellent visualization of the lower uterine segment. The bladder reflection was found to be well below the planned site for hysterotomy. Low-transverse uterine incision was made with a scalpel. Incision was widened bluntly. The 's head was grasped through the hysterotomy and delivered with the help of fundal pressure. The remainder of the body delivered without incident. Cord was clamped and cut after 30 seconds. was handed off to attending nurses. The placenta was delivered with gentle traction on the cord. The uterus was cleaned of all clots and debris with the dry lap pad. The hysterotomy was reapproximated with 0 Vicryl in a running, locked fashion. Second layer of the same suture was used in imbricating fashion to obtain hemostasis. The adnexa were examined and noted to be normal in appearance. The cul-de-sac and gutters were cleansed with dampened laparotomy sponge, removing any further clots and debris. The Marito O retractor was removed. The hysterotomy was reexamined and found to be hemostatic. The peritoneum was reapproximated with 2 0 Vicryl in a running fashion. The rectus muscles were examined and found to be hemostatic. The fascia was reapproximated with 0 Vicryl in a running fashion. Subcutaneous fat was irrigated and Bovie used on oozing vessels. The subcutaneous fat was reapproximated with 2 0 plain gut suture in an interrupted fashion. The skin was closed with a subcuticular stitch of 4-0 Monocryl. Surgical glue was applied above this. Patient tolerated procedure well was taken to recovery area in stable condition. Complications: None Pathology: none sent Surgery Debrief Performed: Yes [place] total score - 1 minute: 8 total score - 5 minute: 9
--- NOTE | 2025-01-30 09:02 | P.ANES_ITS ---
Anesthesia Charges Start Date/Time Anesthesia Start Date: 01/30/25 Anesthesia Start Time: 07:18 Stop Date/Time Anesthesia Stop Date: 01/30/25 Anesthesia Stop Time: 08:56 Coding CPT Codes CPT Codes: ANESTH CS DELIVERY - 05741 ([id number]) P3 - PATIENT W/SEVERE SYS DISEASE, QX - PSYCHIATRIC TECH SVC W/ MD MED DIRECTION, QK - AUTOMOTIVE SHOP FOREMAN 2-4 CNCRNT ANES PROC
--- NOTE | 2025-01-30 09:02 | W.ANESCHARGE ---
Anesthesia Charges Start Date/Time Anesthesia Start Date: 01/30/25 Anesthesia Start Time: 07:18 Stop Date/Time Anesthesia Stop Date: 01/30/25 Anesthesia Stop Time: 08:56 Coding CPT Codes CPT Codes: ANESTH CS DELIVERY - 95627 ([id number]) P3 - PATIENT W/SEVERE SYS DISEASE, QX - PLOW MECHANIC SVC W/ MD MED DIRECTION, QK - SOFTWARE SUPPORT ENGINEER 2-4 CNCRNT ANES PROC
--- NOTE | 2025-01-30 09:03 | P.NB_ITS ---
Nerve Block Nerve Block Time Seen by Provider: 08:45 Date Seen: 01/30/25 Type of block requested by surgeon for post-operative analgesia: TAP Side: bilateral Time out performed: Yes Verification of patient name: Yes Verification of date of : Yes Site marking: site marked Name of person performing procedure: Kelechi Dominguez Continuous monitoring Was continuous monitoring of O2 sat, B/P, quality assurance monitor body, recorded every 15 minutes?: Yes Procedure Checklist: sterile prep, needles and gloves Ultrasound guided. Images saved: Yes Medications given in 5ml increments after negative aspiration: Marcaine %: 0.25 mL: 30 Needle gauge: 20 and Exparel mL: 10 Needle gauge: 20 Patient tolerated procedure well: Yes Additional comments: Injected in 5 mL increments after negative aspiration Block Charges Block Charge (with Pro Fee): TAP Bilateral Use of Ultrasound Machine for Block: Yes- US Guidance/pain block
[2025-01-31] MEDS: ACETAMINOPHEN 500 MG TABLET 1000 MG PO ×2 (01:03→10:07)
[2025-01-31 03:03] VITALS: BP 118/74; PULSE 77; RESP 16; TEMP 36.5; O2SAT 97
[2025-01-31 06:23] LABS: Hemoglobin* 10.4 gm/dL (12.0-16.0)
[2025-01-31 07:48] VITALS: BP 118/74; PULSE 86; RESP 18; TEMP 37; O2SAT 99
[2025-01-31] MEDS: DOCUSATE SODIUM 100 MG CAPSULE PO (08:49)
--- NOTE | 2025-01-31 11:14 | PM.OBPNVD1 ---
OB - PN:Subj Subjective Date Seen: 01/31/25 Narrative: Dana is a 29 y.o. who was admitted to L & D for PROM.? She had an uncomplicated repeat .? ? The patient feels well.? The pain is well controlled with current medications.? She has no new complaints.? She is breast feeding and reports things are going well.? the patient has done well.? Vitals have been stable.? She has remained afebrile.? Has a good appetite, is tolerating a general diet.? She is voiding without difficulty.? She is passing gas and has not had a bowel movement.? She is ambulating and denies any dizziness.? Has Small amount of rubra lochia.? OB - PN: Obj Exam Physical Exam: Vital signs: Temp Pulse Resp BP Pulse Ox O2 Del Method 98.6 F 86 18 118/74 99 Room Air 01/31/25 07:48 01/31/25 07:48 01/31/25 07:48 01/31/25 07:48 01/31/25 07:48 01/31/25 07:48 Narrative: GENERAL APPEARANCE:? normal affect, alert, no distress MOOD:? appropriate CHEST:? clear to auscultation HEART:? regular rate and rhythm ABDOMEN:? soft, non-tender the uterine fundus is firm At Umbilicus, Midline and is appropriate for the stage of recovery. EXTREMITIES:? normal and trace edema Incision: Healing well, no surrounding erythema, abnormal induration or discharge OB - PN: Obj Data Labs Labs: Laboratory Results - last 24 hr 01/30/25 01/31/25 04:29 05:53 Hgb 10.4 L RPR Screen Non Reactive OB - PN: A/P Delivery Assessment and Plan (1) care following delivery: Status: Acute (2) Lactating mother: Status: Acute Plan day: 1 Plan: routine care Comments: Assessment/Plan?G 2 P 2 status post uncomplicated repeat .? ?? 1.? Continue route PP cares? 2.? .? May see if desired? 3.? Anticipate discharge home tomorrow or the following day per pt preference? ?
[2025-01-31] MEDS: IBUPROFEN 600 MG TABLET PO (19:51)
[2025-01-31 19:54] VITALS: BP 117/74; PULSE 54; RESP 16; TEMP 36.9; O2SAT 99
[2025-02-01 03:45] VITALS: BP 110/69; PULSE 74; RESP 20; TEMP 36.3; O2SAT 98
[2025-02-01 08:00] VITALS: BP 112/75; PULSE 96; RESP 20; TEMP 36.9; O2SAT 98
--- NOTE | 2025-02-01 08:28 | P.DS_ITS ---
DS: Providers Provider Date Seen: 02/01/25 Date of admission: 01/30/25 04:55 Primary care physician: Not a Local Provider Admitting Clinician: Maura Amador MD Attending Physician on discharge: Maura Amador MD Date of Discharge: 02/01/25 DS: Diagnosis Discharge Diagnosis (1) Lactating mother: Status: Acute (2) care following delivery: Status: Acute (3) History of severe pre-eclampsia: Status: Acute Exam Narrative: Exam Narrative: GENERAL APPEARANCE:? normal affect, alert, no distress? MOOD:? appropriate? CHEST:? clear to auscultation and percussion? HEART:? regular rate and rhythm? ABDOMEN:? soft, non-tender the uterine fundus is U/2 and is appropriate for the stage of recovery. Incision is well approximated without erythema or edema.? EXTREMITIES:? normal and no edema? Const: Vital Signs, click to edit/add: Vital Signs - 24 hr 01/31/25 19:54 02/01/25 03:45 02/01/25 08:00 Temperature 98.4 F 97.4 F L 98.5 F Pulse Rate [Pulse Oximeter] 54 L 74 96 Respiratory Rate 16 20 20 Blood Pressure [Ri ght Arm] 117/74 110/69 112/75 Pulse Oximetry 99 98 98 Oxygen Delivery Me thod Room Air Room Air Room Air Documenting provider has reviewed patient's vital signs: yes OB - DS: Summary Hospital Course Hospital Course: Dana is a 29 y.o. G 2 P 2 who was admitted to L & D for a scheduled repeat section. ?She had a section that was uncomplicated. The patient feels well. ?The pain is well controlled with current medications. ?She has no new complaints. ?She is bottle feeding formula and reports things are going well. She is planning on exclusively pumping and bottle feeding expressed milk and formula. the patient has done well.? Vitals have been stable.? She has remained afebrile.? Has a good appetite, is tolerating a general diet. ?She is voiding without difficulty.? She is passing gas and has not had a bowel movement.? She is ambulating and denies any dizziness.? Has small amount of rubra lochia. She is considering an IUD for prevention but is uncertain. Peripartum Data Infant delivery method: Repeat Section Procedures: Procedures Operation Date: 01/30/25 07:45 Actual Procedure Side Surgeon p Repeat low transverse section Sherry Mondragon MD complications: none Infant Gender: Male Infant Discharge Plan: Home Status at Discharge Functional status at discharge: independent ambulation Overall status at discharge: patient is progressing back to baseline Time Spent with Patient Time attestation: Total time spent providing and/or coordinating discharge services: Discharge Plan Discharge Disposition: Home, Self-Care Date of Admission: 01/30/25 04:55 Attending Provider on Discharge: Katie Watters Primary Care Provider: Provider,Not a Local Condition: Stable Anticipated Discharge Date/Time: 02/01/25 12:00 Discharge Medications: New docusate sodium 100 mg Capsule 100 mg PO DAILY Qty: 90 0RF Rx Instructions: Take 1-2 tablets daily as needed for constipation. ibuprofen 600 mg Tablet 600 mg PO Q6H PRN (Reason: Pain) Qty: 90 0RF Continued DCK-fxhm-OC-omega 3 fatty no.1 27-1-300 mg capsule 2 cap PO Discontinued aspirin 81 mg tablet,delayed release (DR/EC) 81 mg PO QDAY Discharge Orders: Discharge Order (Routine); Ordered 02/01/25 Ordered By: Katie Watters Patient Education: OB /Breast Feeding Additional Instructions: Discharge instructions were reviewed with the patient including signs and symptoms of infection and home going medications Lifting Restrictions: 20 pounds for 6 weeks No not submerge incision under water X 2 weeks? Nothing vaginally for 6 weeks: no tampons or intercourse Do not drive while taking narcotic pain medication(s) Off Work or School for 8 weeks Symptoms to report to doctor: * Bleeding that saturates more than one pad per hour * Passing clots larger than the size of a golf ball * Pain not relieved by prescribed medication * Fever above 100.4 degrees Fahrenheit * A foul vaginal odor * Difficulty in emotions, mood, and functions * Thoughts of hurting yourself and/or * Painful, reddened area in your breast * Any drainage, redness, or tenderness in your IV/epidural site * Severe headache that doesn't improve after taking medications * Changes in vision, including temporary loss of vision, blurred vision, and/or light sensitivity * Upper abdominal pain (usually under ribs on the right side) * Decrease in urination or painful, frequent urinating * Chest pain * Shortness of breath * Tenderness or pain with redness and/swelling in the calf(s) of your leg 2-week visit: incision check, discuss feeding concerns, review control options and screen for anxiety/depression. 6-week visit for an annual exam. consultation services are available to all mothers and babies for the first year after delivery.? To make an appointment, please call [phone]. Activity Level: Activity as Tolerated and No strenuous activity Discharge Diet: Regular Follow Up Appointments: [facility] [Provider Group] Provider,Not a Local [Primary Care Provider, Family Practice] Forms: Miirath Info Instructions Discharge Comments: Patient discharged in stable condition.
[2025-02-01] MEDS: DOCUSATE SODIUM 100 MG CAPSULE PO (09:23)
[2025-02-01] MEDS: IBUPROFEN 600 MG TABLET PO (09:23)
[2025-02-01] MEDS: ACETAMINOPHEN 500 MG TABLET 1000 MG PO (12:03)
== END 2025-02-01 12:39 | disposition home or self-care (01) | DRG 540 ==
LOC: OB OUT 04:56 → OB 06:30 → MEDSURG 02-01 08:30 → OB 02-08 08:41
PROVIDERS: Obstetrics & Gynecology; Admitting Provider Obstetrics & Gynecology; Visit Provider Obstetrics & Gynecology
PROC: 10D00Z1 Extraction of Products of Conception, Low, Open Approach (ICD-10-PCS; CPT 59514; principal; 2025-01-30 07:45)
DX: O34.211 Maternal care for low transverse scar from previous cesarean delivery (principal); G89.18 Other acute postprocedural pain; O99.214 Obesity complicating childbirth; E66.9 Obesity, unspecified; Z37.0 Single live birth; Z3A.38 38 weeks gestation of pregnancy
CPT/HCPCS: 01961; 36415; 64488; 76942; 84112; 85018; 85025; 86592; 86850; 86900; 86901; A4314; A9270; J0456; J0665; J0666; J0690; J1100; J1885; J2371; J2405; J2590; J3010; J7050; J7120